=== PATIENT | male | born 1965 | race Two or more races ===

== ENCOUNTER → 2017-05-04 | Outpatient (CLI) | payer BC ==
--- NOTE | 2017-05-04 17:53 | PCVCIMAG ---
APPROVED REPORT Exam: Stress Echocardiogram Indication: Hypertension, Hyperlipidemia, Dizziness Patient Location: Echo lab Stress Nurse: Dyan Abreu RN Status: routine HR: 95 bpm Testing Details Test: Exercise stress was performed using a manual protocol. HR Resting HR: 95 bpmMax Heart Rate (APMHR): 166 bpm Max HR Achieved: 187 bpmTarget HR (85% APMHR): 141 bpm % of APMHR: 112 HR response to stress: Normal HR response to stress BP Resting BP: 118/78 mmHg Max BP: 158/78 mmHg ECG Resting ECG: Sinus Rhythm Stress ECG: Sinus Rhythm ST Change: Normal Arrhythmia: None Clinical Reason for Termination: Maximal effort Stress Symptoms: Dyspnea Exercise duration: 10 min Exercise capacity: 13.30 METs Overall Exercise Capacity for Age: Average Pre-Stress Echo The resting Echocardiogram showed normal left ventricular contractility with an estimated Ejection Fraction of about 55-60%. Normal wall motion in all segments on baseline images. Post-Stress Echo The stress Echocardiogram showed normal left ventricular contractility with an estimated Ejection Fraction of about 60-65%. Normal augmentation of wall motion in all segments on post stress images. Conclusion Clinical Response: Non-ischemic Exercise Capacity: Average Stress ECG Response: Non-ischemic Stress Echo Images: Non-ischemic
== END | disposition home or self-care (01) ==
LOC: PCVCIMAG 14:19
PROVIDERS: ATTEND Internal Medicine Cardiovascular Disease
DX: I10 Essential (primary) hypertension (principal); E78.00 Pure hypercholesterolemia, unspecified; R42 Dizziness and giddiness
CPT/HCPCS: 93325; 93351

== ENCOUNTER → 2019-05-11 | Outpatient (CLI) | payer BC ==
--- NOTE | 2019-05-14 10:02 | PCVCIMAG ---
APPROVED REPORT Study performed: 05/11/2019 11:05:37 Exam: Stress Echocardiogram Indication: Pre-Operative CV evaluation, Hypertension Patient Location: Echo lab Stress Nurse: Latricia Vigil RN Room #: 2 Status: routine Ht: 6 ft 0 in HR: 81 bpm BP: 142/84 mmHg Rhythm: NSR,Incomplete RBBB Medical History Medical History: HTN,Hyperlipidemia, Pre-op eval Cardiac Risk Factors: HTN, Hyperlipidemia Previous Cardiac Procedures: none Pretest Chest Pain Characteristics: No chest pain Exercise History: Indeterminate Procedure The patient underwent an Exercise Stress Test using the Homa Protocol. Blood pressure, heart rate, and EKG were monitored. An Echocardiogram was performed by geotechnical field technician in four stages in quad fashion. At peak stress, four selected images were obtained and placed side by side with resting images for comparison. Stress Test Details Stress Test: Exercise stress testing was performed using a Homa protocol. HR Resting HR: 81 bpmMax Heart Rate (APMHR): 164 bpm Max HR Achieved: 171 bpmTarget HR (85% APMHR): 139 bpm % of APMHR: 104 Recovery HR: 105 bpm HR response to stress: Normal HR response to stress BP Resting BP: 142/84 mmHg Max BP: 174/84 mmHg Recovery BP: 146/86 mmHg BP response to stress: Normal blood pressure response to stress. ECG Resting ECG: Sinus Rhythm, Incomplete RBBB Stress ECG: Sinus Rhythm, Incomplete RBBB ST Change: Non-ischemic Maximum ST Deviation: 0.65 mm Arrhythmia: occ PAC Recovery ECG: Sinus Rhythm, Incomplete RBBB Recovery ST Change: Non-ischemic Recovery ST Deviation: 1.0 mm Recovery Arrhythmia: None Clinical Reason for Termination: Maximal effort Stress Symptoms: fatigue Exercise duration: 9 min 00 sec Highest Stage Achieved: Stage 3: 3.4 mph at 14% grade. Exercise capacity: 10.1 METs Overall Exercise Capacity for Age: Average Scale: Sedentary Angina Score: None No complications. Stress ECG Conclusion The patient exercised according to the HOMA protocol for 9:00 mins; achieving a work level of 10.1 METS. The resting heart rate of 81 bpm jorge to a maximum heart rate of 171 bpm. This value represents 104 % of the maximal, age-predicted heart rate. The resting blood pressure of 142/84 mmHg, jorge to a maximum blood pressure of 174/84mmHg. The exercise test was stopped due to fatigue. Justice Treadmill Score is 5.8 which is Low risk. Pre-Stress Echo The resting Echocardiogram showed normal left ventricular contractility with an estimated Ejection Fraction of about 55-60%. Normal wall motion in all segments on baseline images. Post-Stress Echo The stress Echocardiogram showed normal left ventricular contractility with an estimated Ejection Fraction of about 65-70%. Normal augmentation of wall motion in all segments on post stress images. Clinical No clinical or ECG evidence for ischemia. Conclusion Clinical Response: Non-ischemic Exercise Capacity: Average Stress ECG Response: Non-ischemic Stress Echo Images: Non-ischemic No clinical, EKG or echocardiographic evidence for ischemia. No echocardiographic evidence for exercise induced ischemia. Normal stress echocardiogram with maximal exercise stress. <Conclusion> No clinical, EKG or echocardiographic evidence for ischemia. No echocardiographic evidence for exercise induced ischemia. Normal stress echocardiogram with maximal exercise stress.
== END | disposition home or self-care (01) ==
LOC: PCVCIMAG 10:59
PROVIDERS: ATTEND Internal Medicine Cardiovascular Disease
DX: Z01.810 Encounter for preprocedural cardiovascular examination (principal); I10 Essential (primary) hypertension; R07.9 Chest pain, unspecified; Z88.8 Allergy status to other drugs, medicaments and biological substances
CPT/HCPCS: 93325; 93351